=== PATIENT | female | born 1995 | race Caucasian/White ===

== ENCOUNTER 2018-11-19 18:02 | Emergency (ER) | payer OTHER ==
[~2018-11-19] VITALS: Ht 157.5 cm; Wt 72.0 kg
[2018-11-19] MEDS ORDERED: PROMETHAZINE 25MG TABLET PO ONE (18:30)
[2018-11-19] MEDS ORDERED: HYDROcodone/APAP 5/325 TABLET PO ONE (18:30)
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
[2018-11-19] MEDS ORDERED: PROMETHAZINE 25MG TABLET ONE (18:33)
[2018-11-19] MEDS ORDERED: HYDROcodone/APAP 5/325 TABLET ONE (18:34)
--- NOTE | 2018-11-19 18:49 | NUR ---
TASK RN: PT RTD FROM CT. MED NOTED FOR LI, NECK, RIGHT KNEE PAIN
--- NOTE | 2018-11-19 18:55 | NUR ---
CT C-SPINE RESULTS NEGATIVE. C-COLLAR REMOVED. CALL LIGHT W/I REACH
[2018-11-19 19:04] LABS: BASOPHILS # (AUTO) 0.04 x10^3/uL (0-0.1); BASOPHILS % (AUTO) 0 % (0-1); EOSINOPHILS # (AUTO) 0.28 x10^3/uL (0-0.4); EOSINOPHILS % (AUTO) 3 % (1-7); LYMPHOCYTES % (AUTO) 28 % (22-44); MD NO; MEAN CORPUSCULAR HEMOGLOBIN 24.4 pg (27.0-34.8); MEAN CORPUSCULAR HGB CONC 31.6 g/dL (32.4-35.8); MEAN CORPUSCULAR VOLUME 77.2 fL (80-100); MEAN PLATELET VOLUME 9.5 fL (7.4-10.4); MONOCYTES # (AUTO) 0.96 x10^3/uL (0.2-0.8); MONOCYTES % (AUTO) 9 % (2-9); NEUTROPHILS # (AUTO) 6.55 x10^3/uL (1.8-6.8); NEUTROPHILS % (AUTO) 60 % (42-75); PLATELET COUNT 391 x10^3/uL (130-400); RED BLOOD COUNT 4.22 x10^6/uL (3.82-5.3); RED CELL DISTRIBUTION WIDTH 17.5 % (9.6-15.2)
[2018-11-19 19:12] LABS: ANION GAP 6 mmol/L (5-15); CALCIUM 8.5 mg/dL (8.5-10.1); CHLORIDE 107 mmol/L (98-107); CREATININE 0.77 mg/dL (0.55-1.02)
[2018-11-19 20:11] VITALS: BP 143/94
== END 2018-11-19 20:13 | disposition home or self-care (01) ==
LOC: ED 19:50
DX: S06.0X0A Concussion without loss of consciousness, initial encounter (principal); S83.91XA Sprain of unspecified site of right knee, initial encounter; W01.0XXA Fall on same level from slipping, tripping and stumbling without subsequent striking against object, initial encounter; Y93.89 Activity, other specified; Y92.69 Other specified industrial and construction area as the place of occurrence of the external cause; Y99.0 Civilian activity done for income or pay
CPT/HCPCS: 36415; 70450; 72125; 73564; 80048; 85025; 99284; Q0169